=== PATIENT | male | born 2000 | race Caucasian/White ===

== ENCOUNTER 2024-03-17 05:15 | Emergency (ER) | payer SELFPAY ==
[~2024-03-17] VITALS: Ht 177.8 cm; Wt 72.6 kg
[2024-03-17 05:15] VITALS: BP 122/77; PULSE 105; RESP 16; TEMP 98.4; O2SAT 99
== END 2024-03-17 05:30 ==
LOC: MED 05:15
DX: Z02.89 Encounter for other administrative examinations (principal); V49.88XA Car occupant (driver) (passenger) injured in other specified transport accidents, initial encounter; Y93.89 Activity, other specified; Y92.89 Other specified places as the place of occurrence of the external cause; Y99.8 Other external cause status
CPT/HCPCS: 99283